=== PATIENT | male | born 1980 | race Caucasian/White ===

== ENCOUNTER 2018-06-09 09:51 | Outpatient (CLI) | payer OTHER ==
--- NOTE | 2018-06-09 12:18 | RAD ---
THREE VIEWS LEFT FOOT: HISTORY: Left foot pain for 2 weeks. FINDINGS: AP, lateral, and oblique views left foot are obtained. Three views left foot demonstrate no evidence of left foot fractures, subluxations, or bony lesions. IMPRESSION: Normal 3 yews left foot. POS: [facility]
== END 2018-06-09 09:52 | disposition home or self-care (01) ==
LOC: SCSRAD 09:51
PROVIDERS: ATTEND Family Medicine
DX: M79.672 Pain in left foot (principal)

== ENCOUNTER 2022-05-24 10:58 | Outpatient (CLI) | payer BC | END 2022-05-24 10:59 | disposition home or self-care (01) | LOC: SCSRAD 10:58 | PROVIDERS: ATTEND Family Medicine | DX: M54.2 Cervicalgia (principal); M47.812 Spondylosis without myelopathy or radiculopathy, cervical region | CPT/HCPCS: 72040 ==

== ENCOUNTER 2025-04-07 06:05 | Day surgery (SDC) | payer BC ==
[2025-04-06 09:16] VITALS: BMI 42.0
[2025-04-07] MEDS ORDERED: PROPOFOL 40 ML ONE (07:24)
[2025-04-07] MEDS ORDERED: Lidocaine 1% PF 5 ML VIAL ONE (07:25)
[2025-04-07] MEDS ORDERED: GLYCOPYRROLATE/PF 0.2 MG/ML VIAL ONE (07:29)
[2025-04-07] MEDS ORDERED: PROPOFOL 200 MG/20 ML VIAL ONE (07:41)
== END 2025-04-07 08:48 | disposition home or self-care (01) ==
LOC: SDC 06:05
PROVIDERS: ATTEND Internal Medicine Gastroenterology
PROC: 0DJD8ZZ Inspection of Lower Intestinal Tract, Via Natural or Artificial Opening Endoscopic (ICD-10-PCS; principal; 2025-04-07)
DX: Z12.11 Encounter for screening for malignant neoplasm of colon (principal); I10 Essential (primary) hypertension; G47.30 Sleep apnea, unspecified; K21.9 Gastro-esophageal reflux disease without esophagitis; F41.9 Anxiety disorder, unspecified; F32.A Depression, unspecified; Z87.891 Personal history of nicotine dependence
CPT/HCPCS: J2704; J3490